=== PATIENT | female | born 1980 | race Two or more races ===

== ENCOUNTER 2021-10-19 23:45 | Emergency (ER) | payer OTHER ==
[~2021-10-19] VITALS: Ht 162.6 cm; Wt 86.2 kg
[2021-10-20] MEDS ORDERED: HYDR-4798 PO (03:39)
[2021-10-20] MEDS ORDERED: HYDROcodone-ACET 10/325MG TAB PO ONE (03:45)
[2021-10-20 04:39] VITALS: BP 146/77
== END 2021-10-20 04:42 | disposition home or self-care (01) ==
LOC: ER 10-20
DX: S00.12XA Contusion of left eyelid and periocular area, initial encounter (principal); H11.32 Conjunctival hemorrhage, left eye; Y04.2XXA Assault by strike against or bumped into by another person, initial encounter; Y93.89 Activity, other specified; Y92.89 Other specified places as the place of occurrence of the external cause; Y99.8 Other external cause status